=== PATIENT | female | born 1940 | race Caucasian/White ===

== ENCOUNTER 2017-10-12 12:10 | Emergency (ER) | payer MEDICARE, OTHER ==
[~2017-10-12] VITALS: Ht 162.6 cm; Wt 67.6 kg
[~2017-10-12 12:10] MED LIST: ADULT LOW DOSE81 MG PO; ALTACE10 MG PO; ATENOLOL25 MG; CENTRUM SILVER1 EAC3 PO; CRESTOR40 MG PO; HYDROCHLOROTHIA25 MG; ISOSORBIDE MONO30 M1 PO; KEPPRA1000 MG PO; METOPROLOL SUCC50 MG PO; NIASPAN750 MG PO; NIFEDIPINE ER30 MG PO; OMEGA-31000 MG PO; PLAVIX75 MG PO; PROTONIX40 MG PO; RANEXA500 MG; TRICOR145 MG PO
--- OUTSIDE RECORDS SUMMARY | 2017-10-12 12:12 | XMS REPORT ---
Author Author [facility] Address Unknown Phone Unavailable Care Team Providers Care Sports Psychologist Name Role Phone LO PURI Unavailable Unavailable Problems This patient has no known problems. Allergies, Adverse Reactions, Alerts This patient has no known allergies or adverse reactions. Medications This patient has no known medications. Results Test Description Test Time Test Comments Text Results Atomic Results Result Comments CT BRAIN WO [place] [id number] [place], [place] [address] Patient Name: WOLF MATTSON MR #: [id number] : 1940 Age/Sex: 76/F Req #: [id number] Adm Physician: Ordered by: LO PURI MD Report #: [id number] Location: ER Room/Bed: Procedure: [id number] CT/CT BRAIN WO Exam Date: 08/03/17 Exam Time: 1710 REPORT STATUS: Signed Examination: CT BRAIN WITHOUT CONTRAST History:Fall. Head injury. Headache. Comparison studies:None Technique: Axial images were obtained from the skull base to the vertex. Coronal and sagittal images reconstructed from the axial data. Intravenous contrast: None Findings: Scalp: No abnormalities. Bones: Prior right frontal craniotomy. No fractures, blastic or lytic lesions. Brain sulci: Appropriate for age. Ventricles: Normal in size and configuration. No hydrocephalus. Extra-axial space: No abnormalities. Parenchyma: There are patchy areas of hypoattenuation in the periventricular and subcortical white matter, nonspecific. There is a chronic cortical based infarct involving the medial lingual gyrus of the right occipital lobe. No masses, hemorrhage, or acute cortical based vascular insults. Sellar/ suprasellar region: No abnormalities. Craniocervical junction: Patent foramen magnum. No Chiari one malformation. Incidental findings: Atherosclerotic calcification of the cavernous and supraclinoid internal carotid and V4 segments of the bilateral vertebral arteries. Impression: 1. No acute intracranial abnormalities. 2. Prior right frontal craniotomy. 3. Moderate chronic microvascular ischemic change. 4. Chronic right occipital lobe infarct. Signed by: Dr. Nery Cornejo M.D. on 08/03/2017 6:07 PM Dictated By: NERY SANDERS MD 06 Transcribed By: ALLA on 08/03/171806 COPY TO: LO PURI MD CT CERVICAL SPINE WO [place] [address] Patient Name: WOLF MATTSON MR #: [id number] : 1940 Age/Sex: 76/F Req #: [id number] Adm Physician: Ordered by: LO PURI MD Report #: [id number] Location: ER Room/Bed: Procedure: [id number] CT/CT CERVICAL SPINE WO Exam Date: 08/03/17 Exam Time: 1710 REPORT STATUS: Signed Examination: CT CERVICAL SPINE WITHOUT CONTRAST HISTORY:Fall. Head injury. Neck pain. COMPARISON:None. TECHNIQUE: Multidetector helical axial images were obtained without contrast from the foramen magnum to T1. Coronal and sagittal reformatted images were done. Bone and soft tissue windows were evaluated. FINDINGS: Alignment:Normal alignment with straightening of normal lordosis. Vertebrae: Normal height and density. No acute fracture, infection or neoplasm. Disc space heights: Normal height. Caliber of spinal canal: Developmentally normal. Posterior fossa and craniocervical junction: Foramen magnum patent. No Chiari 1 malformation. Soft tissues: Atherosclerotic calcification of the bilateral carotid bifurcations. Degenerative changes : Diffuse disc osteophyte complex at C5-C6 resulting in severe right and moderate left neural foraminal narrowing. No canal stenosis. Bilateral facet arthropathy from C3-C4 through C7-T1. The remaining cervical levels demonstrate no disc bulge/ herniation or foraminal or canal stenosis. Additional findings: None. IMPRESSION: 1. No acute abnormalities. 2. Degenerative changes, as above Signed by: Dr. Nery Cornejo M.D. on 08/03/2017 6:09 PM Dictated By: NERY SANDERS MD 08 Transcribed By: ALLA on 08/03/171808 COPY TO: LO PURI MD
== END 2017-10-12 13:53 | disposition home or self-care (01) ==
LOC: ER 12:10
DX: R04.0 Epistaxis (principal); I10 Essential (primary) hypertension; E11.9 Type 2 diabetes mellitus without complications; I51.9 Heart disease, unspecified; E78.5 Hyperlipidemia, unspecified
CPT/HCPCS: 99282

== ENCOUNTER 2018-03-27 11:05 | Emergency (ER) | payer MEDICARE, OTHER ==
[~2018-03-27] VITALS: Ht 162.6 cm; Wt 67.6 kg
[2018-03-27] MEDS ORDERED: PHENYLEPHRINE HCL 1% NA SPR 15 ML BTL ONE (11:13)
[2018-03-27] MEDS ORDERED: TRAMADOL HCL 50 MG TAB PO ONE (11:45)
[2018-03-27 12:56] VITALS: BP 180/88
[2018-03-27] MEDS ORDERED: HYDROCODONE/APAP 5MG-325MG TAB PO ONE (13:30)
== END 2018-03-27 13:14 | disposition home or self-care (01) ==
LOC: ER 11:05
DX: R04.0 Epistaxis (principal); I10 Essential (primary) hypertension; E11.9 Type 2 diabetes mellitus without complications; I25.10 Atherosclerotic heart disease of native coronary artery without angina pectoris; E78.5 Hyperlipidemia, unspecified; K21.9 Gastro-esophageal reflux disease without esophagitis; Z95.5 Presence of coronary angioplasty implant and graft
CPT/HCPCS: 99283

== ENCOUNTER → 2018-05-22 | Outpatient (CLI) | payer MEDICARE, OTHER ==
--- NOTE | 2018-05-22 12:33 | Diagnostic Imaging Report ---
EXAMINATION: PA and lateral views of the chest. COMPARISON: None CLINICAL HISTORY: Chest pain DISCUSSION: Lines/tubes: None. Lungs: The lungs are well inflated and clear. No pneumonia or pulmonary edema. Pleura: No pleural effusion or pneumothorax. Heart and mediastinum: The cardiomediastinal silhouette is normal. Bones and soft tissues: No acute bony abnormalities. IMPRESSION: No acute cardiopulmonary abnormalities. Signed by: Dr. Juni Tello M.D. on 05/22/2018 12:29 PM
== END ==
LOC: RAD 10:56
PROVIDERS: ATTEND Internal Medicine Cardiovascular Disease
DX: R07.9 Chest pain, unspecified (principal)
CPT/HCPCS: 71046

== ENCOUNTER → 2022-08-30 | Day surgery (SDC) | payer MEDICARE, OTHER ==
[2022-08-24 09:52] LABS: BASOPHILS % 0.4 % (0.0-1.0); EOSINOPHILS # (AUTO) 0.1 (0.0-0.4); EOSINOPHILS % 1.8 % (0.0-6.0); HEMOGLOBIN 10.8 g/dL (12.0-16.0); LYMPHOCYTES # (AUTO) 1.7 (1.0-3.2); LYMPHOCYTES % 23.7 % (18.0-39.1); MEAN CORPUSCULAR HEMOGLOBIN 27.1 pg (28-32); MEAN CORPUSCULAR VOLUME 90.5 fL (81-99); MONOCYTES # (AUTO) 0.6 (0.2-0.8); NEUTROPHILS # (AUTO) 4.8 (2.1-6.9); NEUTROPHILS % 65.4 % (38.7-80.0); PLATELET COUNT 266 x10e3/uL (140-360); RED BLOOD COUNT 3.98 x10e6/uL (3.6-5.1); RED CELL DISTRIBUTION WIDTH 15.3 % (11.7-14.4)
[~2022-08-30] MED LIST changes: +LEVOTHYROXINE25 MCG PO; +LIDOCAINE HCL 2% LOCAL INJ 5 ML SDV VIAL INJ ONE; +METFORMIN HCL500 MG PO; +PHENYLEPHRINE HCL 1% 10 MG/ML VIAL ONE; +POVIDONE IODINE 0.05% 0.05 % ML PO ONE; +PRALUENT P150 MG/1 M SQ; +PRENATAL VITAM1 EACH PO; +PROPOFOL IV EMULSION 10 MG/ML 20 ML VIAL ONE; +TRAZODONE HCL50 MG PO
[2022-08-30 10:15] VITALS: BP 167/90
== END | disposition home or self-care (01) ==
LOC: OR 07:30
PROVIDERS: ATTEND Internal Medicine Gastroenterology
DX: K57.30 Diverticulosis of large intestine without perforation or abscess without bleeding (principal); I10 Essential (primary) hypertension; E11.9 Type 2 diabetes mellitus without complications; Z79.84 Long term (current) use of oral hypoglycemic drugs; K21.9 Gastro-esophageal reflux disease without esophagitis; E03.9 Hypothyroidism, unspecified; I25.10 Atherosclerotic heart disease of native coronary artery without angina pectoris; Z95.5 Presence of coronary angioplasty implant and graft; Z01.810 Encounter for preprocedural cardiovascular examination; Z01.812 Encounter for preprocedural laboratory examination; Z79.82 Long term (current) use of aspirin; Z79.899 Other long term (current) drug therapy
CPT/HCPCS: 36415 ×2; 45378; 82948; 85025; 93005; J2001; J2370; J2704